=== PATIENT | female | born 1965 | race Caucasian/White ===

== ENCOUNTER 2017-03-05 06:12 | Day surgery (SDC) | payer OTHER ==
[2017-03-05] MEDS ORDERED: CEFAZOLIN 1 GM INJ (07:00)
[2017-03-05] MEDS ORDERED: FENTAnyl 50 MCG/ML VIAL (07:26)
[2017-03-05] MEDS ORDERED: MIDAZOLAM 1 MG/ML 2 ML INJ (07:27)
[2017-03-05] MEDS: LIDOCAINE 1%/EPI 30 ML INJ (08:20)
[2017-03-05] MEDS ORDERED: PROPOFOL 20 ML (08:25)
[2017-03-05] MEDS ORDERED: LIDOCAINE 100 MG SYRINGE (08:25)
[2017-03-05] MEDS ORDERED: METOCLOPRAMIDE 10 MG INJ (08:25)
[2017-03-05] MEDS ORDERED: ONDANSETRON 4 MG INJ (08:25)
[2017-03-05] MEDS ORDERED: FENTAnyl 50 MCG/ML VIAL IV ×2 (09:00)
[2017-03-05] MEDS ORDERED: HYDROmorphONE (0.2 MG/ML) 10ML SYG IV (09:00)
[2017-03-05] MEDS ORDERED: METOCLOPRAMIDE 10 MG INJ IV (09:00)
[2017-03-05] MEDS ORDERED: ONDANSETRON 4 MG INJ IV (09:00)
[2017-03-05] MEDS ORDERED: KETOROLAC 15 MG INJ IV (09:00)
== END 2017-03-05 09:55 | disposition home or self-care (01) ==
LOC: SDS 06:12
DX: G56.01 Carpal tunnel syndrome, right upper limb (principal)
CPT/HCPCS: 64721